=== PATIENT | female | born 1960 | race Caucasian/White ===

== ENCOUNTER → 2021-05-27 | Outpatient (CLI) | payer OTHER ==
[~2021-05-27] MED LIST: CIPRO500 MG PO; FLAGYL500 MG; HYDROCODONE-AP1 EAC6 PO; INVANZ1 GM IV; POTASSIUM20 PO; TYLENOL325 MG PO; ZOFRAN ODT4 MG PO
== END ==
LOC: SJCVCIMAG 07:55
PROVIDERS: ATTEND Internal Medicine
DX: R00.2 Palpitations (principal); R06.00 Dyspnea, unspecified